=== PATIENT | female | born 1940 | race Hispanic/Latino ===

== ENCOUNTER 2024-03-30 16:29 | Emergency (ER) | payer OTHER ==
[~2024-03-30] VITALS: Ht 152.4 cm; Wt 78.0 kg
[2024-03-30 17:14] LABS: BASOPHILS # (AUTO) 0.07 K/uL (0.00-0.20); BASOPHILS % (AUTO) 0.6 % (0.0-5.0); EOSINOPHILS # (AUTO) 0.25 K/uL (0.00-0.70); EOSINOPHILS % (AUTO) 2.2 % (0.0-8.0); HEMATOCRIT 31.2 % (36-48); IMMATURE GRANULOCYTE ABSOLUTE 0.07 K/uL (0-1); LYMPHOCYTES # (AUTO) 2.5 K/uL (1.0-4.8); LYMPHOCYTES % (AUTO) 21.8 % (21.0-51.0); MEAN CORPUSCULAR HEMOGLOBIN 24.1 pg (27.0-33.0); MEAN CORPUSCULAR HGB CONC 31.4 g/dL (32.0-36.0); MEAN CORPUSCULAR VOLUME 76.7 fL (79-99); MONOCYTES # (AUTO) 0.6 K/uL (0.1-1.0); MONOCYTES % (AUTO) 5.1 % (3.0-13.0); NEUTROPHILS % (AUTO) 69.7 % (40.0-77.0); PLATELET COUNT (AUTO) 391 K/uL (130-400); RED BLOOD CELL COUNT(AUTO) 4.07 MIL/uL (4.00-5.50); RED CELL DISTRIBUTION WIDTH 15.9 % (11.0-15.5); WHITE BLOOD COUNT (AUTO) 11.5 K/uL (4.8-10.8)
[2024-03-30 17:24] LABS: PROTHROMBIN TIME 10.8 SEC (9.6-11.6)
[2024-03-30 17:25] LABS: PARTIAL THROMBOPLASTIN TIME 26.7 SEC (26.3-35.5)
[2024-03-30 17:27] LABS: CREATININE 0.9 mg/dL (0.5-1.0); POTASSIUM 3.7 mmol/L (3.5-5.1)
[2024-03-30 17:59] LABS: B-TYPE NATRIURETIC PEPTIDE 121 pg/mL (0-100)
[2024-03-30 18:12] LABS: APPEARANCE,URINE CLEAR (CLEAR); BILIRUBIN,URINE NEGATIVE (NEGATIVE); GLUCOSE, URINE (UA) NEGATIVE (NEGATIVE); KETONES,URINE NEGATIVE (NEGATIVE); LEUKOCYTE ESTERASE ,URINE NEGATIVE Leu/uL (NEGATIVE); NITRATE,URINE NEGATIVE (NEGATIVE); OCCULT BLOOD,URINE NEGATIVE (NEGATIVE); PROTEIN,URINE NEGATIVE (NEGATIVE); UROBILINOGEN,URINE 0.2 mg/dL (0.2-1.0)
[2024-03-30 18:14] LABS: ADD UA MICROSCOPIC NO; COLOR,URINE LIGHT-YELLOW (YELLOW)
[2024-03-30 18:39] VITALS: BP 160/64; PULSE 60; RESP 18; O2SAT 100
== END 2024-03-30 18:47 | disposition home or self-care (01) ==
LOC: EDH 16:29
DX: I10 Essential (primary) hypertension (principal); R07.89 Other chest pain; E11.9 Type 2 diabetes mellitus without complications; M18.0 Bilateral primary osteoarthritis of first carpometacarpal joints; Z98.890 Other specified postprocedural states; Z88.0 Allergy status to penicillin
CPT/HCPCS: 36415; 71045; 80048; 81003; 82550; 83880; 84484; 85025; 85610; 85730; 93005